=== PATIENT | male | born 1970 | race African-American/Black ===

== ENCOUNTER 2017-02-05 08:30 | Inpatient (IN) | payer MEDICARE, OTHER ==
[2017-01-24 17:37] LABS: ASCORBIC ACID (UR NOT ORDER) NEG (NEG); BILIRUBIN, URINE NEGATIVE (NEG); KETONE, URINE NEGATIVE (NEG); LEUKOCYTE ESTERASE(NOT OR NEG (NEG); WBC (NOT ORDERED) (RFLEX) 1 (0-5)
[2017-01-24 17:40] LABS: BASOPHILS 0.5 %; BASOPHILS ABSOLUTE 0.03 10/3/uL (0.0-0.16); EOSINOPHILS 4.6 %; EOSINOPHILS ABSOLUTE 0.26 10/3/uL (0.0-0.53); HEMATOCRIT 40.1 % (40.0-51.0); HEMOGLOBIN 13.4 g/dL (13.6-17.8); IMMATURE GRANULOCYTES 0.2 %; IMMATURE GRANULOCYTES ABSOLUTE 0.01 10/3/uL (0.0-0.11); LYMPHOCYTES ABSOLUTE 1.41 10/3/uL (0.67-4.30); MEAN CORPUS HGB CONC 33.4 g/dL (32.0-36.0); MEAN CORPUSCULAR HEMOGLOB 28.7 pg (26.0-34.0); MEAN CORPUSCULAR VOLUME 85.9 fL (80-100); MEAN PLATELET VOLUME 11.3 fL (9.2-13.0); MONOCYTES 7.8 %; MONOCYTES ABSOLUTE 0.44 10/3/uL (0.21-1.20); NEUTROPHILS 61.9 %; NEUTROPHILS ABSOLUTE 3.48 10/3/uL (2.02-8.40); PLATELET COUNT 218 10/3/uL (150-400); RBC DISTRIBUTION WIDTH 14.6 % (12.0-16.0); RED CELL COUNT 4.67 10/6/uL (4.7-6.1); WHITE BLOOD CELLS 5.6 10/3/uL (4.5-10.5)
[2017-01-24 17:41] LABS: MANUAL DIFF NO %
[2017-01-24 17:46] LABS: PROTIME (NOT ORD) 13.1 SEC (12.0-14.5)
[2017-01-24 18:00] LABS: A/G RATIO 1.3 (0.7-1.9); ALBUMIN 4.6 G/DL (3.5-5.0); ALKALINE PHOSPHATASE 91 U/L (45-117); BUN (BLOOD UREA NITROGEN) 15 MG/DL (6-23); CALCIUM, SERUM 9.7 MG/DL (8.5-10.4); CHLORIDE, SERUM 100 MMOL/L (96-112); CO2 (CARBON DIOXIDE) 30 MMOL/L (24-34); CREATININE 1.08 MG/DL (0.70-1.30); GFR AFRICAN AMERICAN 94 ML/MIN (>=60); GFR NON AFRICAN AMERICAN 81 ML/MIN (>=60); GLOBULIN 3.5 G/DL (2.5-4.1); GLUCOSE, SERUM 96 MG/DL (60-99); POTASSIUM, SERUM 3.5 MMOL/L (3.5-5.3); SGOT(AST) 20 U/L (5-40); SGPT(ALT) 27 U/L (5-65); SODIUM, SERUM 139 MMOL/L (135-148); TOTAL BILIRUBIN 0.3 MG/DL (0-1.2); TOTAL PROTEIN 8.1 G/DL (6.0-8.5)
--- NOTE | ~2017-02-05 | DS ---
Discharge Summary [facility] [address] [place]. [address] NAME: EZRA HARLEY : 70 STATUS : DIS IN PAT#: [id number] AGE: 47 ADM/REG DATE : 02/05/17 MR#: [id number] REPORT SERV DATE: 02/16/17 DICTATED BY: DALLAS MILES DATE: 02/15/17 REPORT STATUS : Draft TRANSCRIBED BY: AMADO DATE: 02/15/17 Data Collection from hospitalization DISCHARGE DIAGNOSES: 1. Severe left knee degenerative joint disease. 2. Hypertension. 3. Migraines. 4. Asthma. 5. Former smoker. CONSULTATIONS: None. PROCEDURES PERFORMED: Left posterior stabilized total knee replacement, cemented, 02/04/2017. PATHOLOGY: Bone and joint, left knee, total knee - degenerative changes with osteopenia. Bone marrow - fatty without hematopoiesis, synovial hyperplasia with neovascularization (no crystals). MEDICATIONS: ProAir two puffs via inhaler as needed, Tenormin 25 mg daily, Advair Diskus one puff via inhaler twice a day, Zestoretic one tablet daily, Roxicodone 5-10 mg every four to six hours as needed, Klor-Con 10 mEq daily, Desyrel 50 mg at bedtime, and Coumadin 5 mg daily. CONDITION AT DISCHARGE: Stable. DISPOSITION: The patient was discharged home to be followed by home health care on an 1800- calorie diabetic diet with activities as instructed. He would follow up with me on 02/20/2017. HOSPITAL COURSE: This is a 47-year-old man who had complaints of severe left knee pain for about one to two years. He has not had a fall or injury. The location of the pain is across the patella. X-rays showed severe left knee degenerative joint disease. Treatment options were discussed and it was elected to proceed with surgical intervention. He was admitted to the hospital at this time for further evaluation and treatment. Upon admission, he was taken to the operating room where he underwent the above-mentioned procedure. He tolerated this well, and there were no complications. On postop day #1, he was evaluated by Occupational Therapy. BECKA hose were in place. He was up sitting in a bedside chair. He remained on his inhalers for his history of asthma. Blood pressure was controlled. Atenolol, lisinopril, and hydrochlorothiazide were continued. He was receiving level 1 sliding scale insulin. On postop day #2, he continued to progress. He said he felt stiff and sore. We encouraged him to mobilize. Discharge planning was performed. On 02/08/2017, he continued to progress. Discharge instructions were given. Due to his improved and stable condition, he was discharged home to be followed by home health care with the above-stated instructions. Information collected by: Kailey Diamond Discharge Summary [address] [address] NAME: EZRA HARLEY : 70 STATUS : DIS IN PAT#: [id number] AGE: 47 ADM/REG DATE : 02/05/17 MR#: [id number] REPORT SERV DATE: 02/16/17 DICTATED BY: DALLAS MILES DATE: 02/15/17 REPORT STATUS : Draft TRANSCRIBED BY: AMADO DATE: 02/15/17 I submit the above information as my discharge summary. TG/AMADO Lulu Miles M.D. / [id number] CC: Alexander Johnston M.D.
--- NOTE | ~2017-02-05 | OP ---
Record Of Operation [facility] [address] [place]. [address] NAME: EZRA HARLEY : 70 STATUS : ADM IN PAT#: [id number] AGE: 47 ADM/REG DATE : 02/05/17 MR#: [id number] REPORT SERV DATE: 02/06/17 DICTATED BY: DALLAS MILES DATE: 02/05/17 REPORT STATUS : Draft TRANSCRIBED BY: MODL DATE: 02/05/17 DATE OF PROCEDURE: 02/05/2017 PREOPERATIVE DIAGNOSIS: Severe left knee degenerative joint disease. POSTOPERATIVE DIAGNOSIS: Severe left knee degenerative joint disease. OPERATION: Left posterior stabilized total knee replacement, cemented. SIDE: Left. SIZE: See chart. ANESTHESIA: See chart. ESTIMATED BLOOD LOSS: About 10 mL. TOURNIQUET TIME: Approximately 1 hour and 10 minutes. COMPLICATIONS: None. SPECIMENS: Articular surfaces. PROCEDURE IN DETAIL: The patient was appropriately identified and marked. The operative side agreed with the consent form and it was checked by all members of the surgical team. The patient was taken to the operating room and anesthesia was induced per the anesthesiologist. The patient was carefully transferred to the operating table without incident. The patient received appropriate prophylactic antibiotics and a Dodd catheter was placed in the standard sterile technique. The patient was then carefully positioned, padded, prepped and draped in the normal sterile fashion. The operative leg had been appropriately identified and checked by all members of the operating team against the consent form and found to be the correct limb. The patient's lower extremity was then exsanguinated with an Florencio wrap and a tourniquet was inflated to 350 mm/Hg. Sharp dissection was carried out through a straight midline longitudinal incision and electrocautery through the fat. Sharp quad splitting approach was carried out between about the medial 10 percent of the tendon and the lateral 90 percent of the tendon and down around the medial aspect of the patella and then 1 cm medial to the tibial tubercle. The patella was carefully everted and the posterior fat pad was excised and gentle MCL elevation was carried out off the proximal medial tibia subperiosteally. IM guide was placed in the distal femur after using the appropriate drill. The distal femoral cutting guide was held with 2 pins and the distal cut made. Meniscal fragments and the ACL and the PCL were excised with electrocautery, carefully staying anterior to the posterior fat pad. The proximal tibial alignment guide was set appropriately and the proximal tibial cut made. Spacer block verified full extension with excellent mediolateral balance. Sizing guide was used to place 2 drill holes in the distal femur and the four-in-one cutting block was then placed, impacted and checked Record Of Operation [facility] [address] [place]. [address] NAME: EZRA HARLEY : 70 STATUS : ADM IN PAT#: [id number] AGE: 47 ADM/REG DATE : 02/05/17 MR#: [id number] REPORT SERV DATE: 02/06/17 DICTATED BY: DALLAS MILES DATE: 02/05/17 REPORT STATUS : Draft TRANSCRIBED BY: AMADO DATE: 02/05/17 to be sure it would not notch with an chung wing and it was held with 2 pins. The anterior cut, posterior cut, anterior chamfer and posterior chamfer cuts were made. The pins were removed and the block was removed. A posterior release was carried out with a curved 3/4 inch osteotome staying right on the bone posteriorly. The box-cut guide was then placed, impacted and held with 2 pins and a reciprocating saw was used to cut out the box. With the trial components in place, there was excellent medial/lateral balance. The patella was then measured with a caliper, cut first with an oscillating saw and then reamed with a patella reamer. With the trial patella in place, there was excellent patellar tracking. Rotation was marked on the tibia and the tibia prepared with a drill and stamp chisel. All surfaces were then copiously irrigated with pulsatile lavage, carefully dried and then vacuum-mixed cement was pressurized with a cement gun in a doughy phase. The tibial component was placed, impacted and excess cement was removed. The cement was then pressurized in the femur and placed on the posterior runners of the femoral component, which was placed, impacted and excess cement removed and the knee was brought out into extension on a trial spacer. The cement was then pressurized in the patella. Patellar component was then placed, clamped and excess cement was removed. Once all cement was hardened, the knee was taken through range of motion. Further extruded cement was removed with a small osteotome. Then based on the trial inserts, we decided on the actual insert, which was placed in the standard fashion and held with a locking mechanism. The knee was then copiously irrigated and then closed in a layered fashion over a medium Hemovac drain superolaterally with interrupted #1 in the deep fascia, 2-0 subcutaneous and vikas in the skin. The wounds were dressed sterilely and the tourniquet was deflated. The patient was then awakened and taken to the postanesthesia care unit without incident. All counts were correct at the end of the case. WTB/MODL Lulu Miles M.D. / [id number] CC: Lulu Miles M.D.
[~2017-02-05 08:30] MED LIST: ADVAIR250 INH; ATEN25 PO; KLOR-CON 1010 MEQ PO; PROAIR HFA INH; TRAZ50 PO; ZESTORETIC1 TA1 PO
[2017-02-06 05:51] LABS: HEMOGLOBIN 11.4 g/dL (13.6-17.8)
[2017-02-06 05:57] LABS: HEMATOCRIT 34.2 % (40.0-51.0)
[2017-02-06 05:58] LABS: INTERNATIONAL NORMAL RATI 1.1 UNITS (-); PROTIME (NOT ORD) 14.1 SEC (12.0-14.5)
[2017-02-06 05:59] LABS: BUN (BLOOD UREA NITROGEN) 14 MG/DL (6-23); CALCIUM, SERUM 9.1 MG/DL (8.5-10.4); CHLORIDE, SERUM 102 MMOL/L (96-112); CO2 (CARBON DIOXIDE) 27 MMOL/L (24-34); CREATININE 1.04 MG/DL (0.70-1.30); GFR AFRICAN AMERICAN 99 ML/MIN (>=60); GFR NON AFRICAN AMERICAN 85 ML/MIN (>=60); POTASSIUM, SERUM 4.2 MMOL/L (3.5-5.3); SODIUM, SERUM 138 MMOL/L (135-148)
[2017-02-06 06:00] LABS: GLUCOSE, SERUM 123 MG/DL (60-99)
[2017-02-07 04:27] LABS: HEMOGLOBIN 10.1 g/dL (13.6-17.8)
[2017-02-07 04:28] LABS: HEMATOCRIT 29.2 % (40.0-51.0)
[2017-02-07 04:33] LABS: INTERNATIONAL NORMAL RATI 1.2 UNITS (-)
[2017-02-07] MEDS ORDERED: C5 PO (12:01)
[2017-02-07] MEDS ORDERED: OXYCOD PO (12:02)
[2017-02-08 04:34] LABS: HEMOGLOBIN 9.2 g/dL (13.6-17.8)
[2017-02-08 04:39] LABS: INTERNATIONAL NORMAL RATI 1.4 UNITS (-); PROTIME (NOT ORD) 17.1 SEC (12.0-14.5)
== END 2017-02-08 12:49 | disposition home health service (06) | DRG 470 ==
LOC: SDC/OF 08:30 → 3JRC 15:08
PROVIDERS: Specialist
PROC: 3E0T3CZ (ICD-10-PCS; 2017-02-05)
PROC: 0SRD0J9 Replacement of Left Knee Joint with Synthetic Substitute, Cemented, Open Approach (ICD-10-PCS; principal; 2017-02-05 10:15)
DX: M17.12 Unilateral primary osteoarthritis, left knee (principal); E88.81 Metabolic syndrome and other insulin resistance; I10 Essential (primary) hypertension; J45.909 Unspecified asthma, uncomplicated; E11.9 Type 2 diabetes mellitus without complications
CPT/HCPCS: 71020; 80048; 80053; 81001; 82962; 85014; 85018; 85025; 85610; 87641; 88305; 88311; 93005; 94640; 97110-GP; 97116-GP; 97150-GP; 97161-GP; 97166-GO; 97535-GO; A9270-GY; C1776; J1580; J1885; J2250; J2270; J2274; J2405; J2795; J3010; J3370